=== PATIENT | male | born 1980 | race Caucasian/White ===

== ENCOUNTER 2019-08-04 08:28 | Emergency (ER) | payer BC, OTHER ==
[~2019-08-04] VITALS: Ht 182.9 cm; Wt 90.0 kg
[2019-08-04 08:32] VITALS: BP 126/83
[2019-08-04] MEDS ORDERED: METH-360 PO (09:29)
[2019-08-04] MEDS ORDERED: NAPR-56 PO (09:29)
[2019-08-04] MEDS ORDERED: ketorolac tromethamine 15mg/ml inj. IM ONE (09:30)
== END 2019-08-04 09:53 | disposition home or self-care (01) ==
LOC: ER 08:28
DX: M54.5 Low back pain (principal); M54.6 Pain in thoracic spine; Z79.899 Other long term (current) drug therapy
CPT/HCPCS: 96372; 99283; J1885

== ENCOUNTER 2020-06-09 11:55 | Emergency (ER) | payer MEDICAID, OTHER ==
[~2020-06-09] VITALS: Ht 180.3 cm; Wt 90.9 kg
[~2020-06-09 11:55] MED LIST: METH-360 PO
[2020-06-09 12:01] VITALS: BP 132/93
[2020-06-09] MEDS ORDERED: AMOX-422 PO (12:36)
== END 2020-06-09 12:52 | disposition home or self-care (01) ==
LOC: ER 11:56
DX: H66.91 Otitis media, unspecified, right ear (principal); M54.2 Cervicalgia; Z79.2 Long term (current) use of antibiotics; Z79.899 Other long term (current) drug therapy
CPT/HCPCS: 99283

== ENCOUNTER 2020-11-13 06:29 | Emergency (ER) | payer MEDICAID, OTHER ==
[~2020-11-13] VITALS: Ht 180.3 cm; Wt 86.4 kg
[2020-11-13 06:33] VITALS: BP 125/87
== END 2020-11-13 07:40 | disposition home or self-care (01) ==
LOC: ER 06:29
DX: S93.402A Sprain of unspecified ligament of left ankle, initial encounter (principal); F17.210 Nicotine dependence, cigarettes, uncomplicated; Z79.899 Other long term (current) drug therapy; Y30.XXXA Falling, jumping or pushed from a high place, undetermined intent, initial encounter; Y93.89 Activity, other specified; Y92.89 Other specified places as the place of occurrence of the external cause; Y99.8 Other external cause status
CPT/HCPCS: 73610; 99283

== ENCOUNTER 2024-07-20 12:35 | Emergency (ER) | payer MEDICAID, OTHER ==
[~2024-07-20] VITALS: Ht 180.3 cm; Wt 88.9 kg
--- NOTE | 2024-07-20 13:18 | Physician Documentation ---
History of Present Illness ~ General Chief Complaint: Multiple Medical Complaints Stated Complaint: MULTIPLE MED COMPLAINTS Time Seen by MD: 12:42 Primary Medical Doctor: none History of Present Illness Initial Comments This is a 43-year-old male who presents with neck and upper back pain following a fall from a tree three days prior, patient reports he fell approximately 6-10 feet striking his head though reports no blood thinners and no loss of consciousness. Patient reports pain is worse when moving his head and neck. Reports no new numbness or weakness in extremities. Patient additionally reports concern for a painful area of swelling that has been present for the past month to his right face just superior to his right ear. Patient reports no nausea or vomiting and no vision changes. Patient reports no other acute symptoms or concerns. Medication Reconciliation Allergies: Coded Allergies: No Known Allergies (Unverified , 10/02/10) Scheduled Methocarbamol (Robaxin-750), 1 TAB PO Q12H Sulfamethoxazole/Trimethoprim (Bactrim Ds Tablet), 1 TAB PO Q12H Past Medical History Past Medical History: No Pertinent History Past Surgical History: no surgical history Alcohol Use: None Drug Use: none Review of Systems ROS Neck and back pain Physical Exam Physical Exam Vital Signs: Temperature: 98.5, Source: Oral, Heart Rate: 101, Respiratory Rate: 16, BP: 154/90, Pulse Oximetry: 98, Weight: 88.900 Oxygen Flow Rate: 0 Physical Exam VITALS: Reviewed and as above. GENERAL: Alert, nontoxic appearing, no apparent distress. HEENT: Approximately 1.5 cm x 1.5 cm raised area of fluctuance tender to palpation to lateral aspect of scalp just superior to right ear, mildly erythematous. Otherwise atraumatic, normocephalic, PERRLA, EOMI, no bates sign, no raccoon eye. C-spine and neck nontender to palpation, patient reports pain when turning neck 45 in each direction RESPIRATORY: No increased work of breathing, no respiratory distress, speaking in full clear sentences CHEST: Nontender to palpation, no deformity, no flail chest, no crepitus CV: Regular rate and rhythm no murmur BACK: Nontender to palpation no deformity, no crepitus GI: Nondistended MUSCULOSKELETAL: Nontender to palpation, no deformity, no crepitus SKIN: NEURO: PSYCH: Procedures I & D Procedure : Site: Right anterior inferolateral scalp Anesthesia: Lidocaine w/ Epi Volume Anesthetic (mls): 2 Blade Size: 11 Incision: mass incised, pus drained Tolerated Procedure Well?: yes, no complications Progress Results/Orders Results/Orders Orders - FORTUNATO ARGUELLES REPLENISHER Ct Head (07/20/24 13:08) Ct Cervical Spine (07/20/24 13:08) Laceration/I&D Tray Set Up (07/20/24 13:18) Consent For Procedure (07/20/24 ) Completed Orders - FORTUNATO ARGUELLES REPLENISHER Ct Head (07/20/24 13:08) Ct Cervical Spine (07/20/24 13:08) Tetanus/Pertuss/Diph Acell/Pf (Boostrix (07/20/24 13:20) Lidocaine 1% W/Epi 1:100,000 (Xylocaine (07/20/24 13:20) Ketorolac Trometh 15mg/Ml Vial (Toradol (07/20/24 13:50) Vital Signs 07/20/24 07/20/24 07/20/24 12:37 13:21 15:12 Temp 98.5 98.5 Pulse 101 78 Resp 16 12 14 B/P (MAP) 154/90 128/69 Pulse Ox 98 99 O2 Flow Rate 0 EKG/XRAY/CT/US/VASC/MRI CT #1: Impression EXAM: CT CT CERVICAL SPINE HISTORY: headstrike no loc COMPARISON: None CTDIvol 20.7 mGy, DLP 556.3 mGy*cm. TECHNIQUE: Multiple axial CT images of the spine were obtained using bone algorithm. Axial and coronal reformatting was done. Bone and soft tissue windows were reviewed. FINDINGS: No evidence of definite acute fracture, spinal dislocation, or significant appearing acute subluxation is seen. Degenerative changes of the spine. IMPRESSION: No definite CT evidence of acute fracture or dislocation of the bony cervical spine. Electronically Signed by:DAVIAN WINSTON MD Date & Time: 07/20/24 132 Dictated by: DAVIAN WINSTON MD Dictation date and time: 07/20/24 1322 I have reviewed and agree with the radiology report. I have reviewed and interpreted the imaging as: No fracture or acute misalignment CT #2: Impression EXAM: CT CT HEAD HISTORY: headstrike no loc COMPARISON: None TECHNIQUE: Axial images of the head were obtained and reformatted in coronal and sagittal planes. All CT scans at this medical facility are performed using dose modulation techniques as appropriate to a performed exam including the following: Automated exposure control was utilized; adjustment of the MA and/or KV according to patient size; and use of iterative reconstruction technique. CT Dose: CTDI volume is 65 mGy. Dose-length product is 1227 mGy*cm FINDINGS: There is a small area of encephalomalacia in the inferomedial right cerebellum probably related to chronic infarct. There is no evidence of acute intracranial hemorrhage, mass, mass effect midline shift. There is no hydrocephalus or extra- axial fluid collection. Bustillos-white matter differentiation is maintained. The visualized paranasal sinuses and mastoid air cells are clear. The calvarium is intact. IMPRESSION: 1. No acute intracranial process. 2. Small area of encephalomalacia in the inferomedial right cerebellum probably related chronic infarct. HS:Y Electronically Signed by:DEONDRE CALDERON MD Date & Time: 07/20/24 1326 Dictated by: DEONDRE CALDERON MD Dictation date and time: 07/20/24 1308 I have reviewed and agree with the radiology report. I have reviewed and interpreted the imaging as: No intracranial hemorrhage Medical Decision Making Findings This 43-year-old male presented with neck and upper back pain following a fall from a tree where he struck his head three days prior, reassuring the patient did not have loss of consciousness, is not as blood thinners, and reported no new weakness or numbness in limbs. CTs of head and C-spine were obtained, head CT did not demonstrate evidence of intracranial hemorrhage or acute skull fracture, and CT of C-spine did not demonstrate evidence of fracture or traumatic misalignment. Remainder of physical exam was benign with no other injuries found on exam and patient reported no other injuries. Patient had additional concern for a area of pain and swelling to his right scalp just superior to his right ear present for approximately one month and increasing in size which on exam was found to be tender and fluctuant consistent with an abscess or infected cystic mass therefore a incision drainage was indicated. Mass was incised with semi loculated purulent material expressed, patient tolerated procedure well with no complications. Patient is appropriate for outpatient follow up and given careful return to care precautions and instructed to follow up in 2-3 days for wound recheck with primary care provider or return to the emergency department. Patient provided home care instructions and return to care precautions which he verbalized understanding of. Differential Diagnosis Cellulitis, intracranial hemorrhage, neurovascular injury, spinal cord injury, spinal fracture, fractures, chest wall injury, concussion, abrasions Departure Time of Disposition: 15:01 Disposition: 01 HOME / SELF CARE / HOMELESS Impression: Primary Impression: Cutaneous abscess of face Additional Impressions: Neck pain Upper back pain Condition: Improved Discharge Instructions: Abscess, Care After, Incision and Drainage, Care After Additional Instructions: Your neck and back pain from your follow up appears to be soft tissue injuries it is reassuring that you do not have any numbness or weakness in your arms or legs. Please keep the drained abscess area clean and dry, use warm compresses on it 20 minutes at time at least twice a day to help the area drain. Take the antibiotics as prescribed. Please follow up with your primary care provider in the next few days. Please return to the emergency department for any new or worsening concerning symptoms including but not limited to new weakness or numbness, confusion, persistent vomiting, worsening pain and swelling to the area or if you develop a fever. Referrals: NO PRIMARY CARE PROVIDER (PCP) Prescriptions Sulfamethoxazole/Trimethoprim (Bactrim Ds Tablet) 800 Mg-160 Mg Tablet 1 TAB PO Q12H for 7 Days, #14 TAB Prov: FORTUNATO ARGUELLES 07/20/24 Education Educated: Patient Educated regarding: diagnosis, treatment, prognosis, need for follow up Signature Scribe Signature: No scribe Attestation: The note accurately reflects work and decisions made by me.SARAH Kendrick 07/20/24 22:18 FORTUNATO ARGUELLES July 20, 2024 13:18
[2024-07-20] MEDS: LIDOcaine 1% W/epiNEPHrine 1:100,000 20ml vial IJ ONE (13:20)
--- NOTE | 2024-07-20 13:24 | RADIOLOGY REPORT ---
EXAM: CT CT CERVICAL SPINE HISTORY: headstrike no loc COMPARISON: None CTDIvol 20.7 mGy, DLP 556.3 mGy*cm. TECHNIQUE: Multiple axial CT images of the spine were obtained using bone algorithm. Axial and michel l reformatting was done. Bone and soft tissue windows were reviewed. FINDINGS: No evidence of definite acute fracture, spinal dislocation, or significant appearing acute subluxatio n is seen. Degenerative changes of the spine. IMPRESSION: No definite CT evidence of acute fracture or dislocation of the bony cervical spine.
--- NOTE | 2024-07-20 13:29 | RADIOLOGY REPORT ---
EXAM: CT CT HEAD HISTORY: headstrike no loc COMPARISON: None TECHNIQUE: Axial images of the head were obtained and reformatted in coronal and sagittal planes. All CT scans at this medical facility are performed using dose modulation techniques as appropriate t o a performed exam including the following: Automated exposure control was utilized; adjustment of th e MA and/or KV according to patient size; and use of iterative reconstruction technique. CT Dose: CTDI volume is 65 mGy. Dose-length product is 1227 mGy*cm FINDINGS: There is a small area of encephalomalacia in the inferomedial right cerebellum probably related to ch ronic infarct. There is no evidence of acute intracranial hemorrhage, mass, mass effect midline shift . There is no hydrocephalus or extra-axial fluid collection. Bustillos-white matter differentiation is ma intained. The visualized paranasal sinuses and mastoid air cells are clear. The calvarium is intact. IMPRESSION: 1. No acute intracranial process. 2. Small area of encephalomalacia in the inferomedial right cerebellum probably related chronic infar ct. HS:Y
[2024-07-20] MEDS ORDERED: SULF1TAB49 PO (15:01)
[2024-07-20] MEDS: ketorolac trometh 15mg/ml vial 15 MG/ML ML IM ONE (15:01)
[2024-07-20] MEDS: TETanus/Pertussis (Acell)/Diphther VAC/PF (Tdap-Adult) 0.5ml syringe IMVAC ONE (15:03)
[2024-07-20 15:12] VITALS: BP 128/69; PULSE 78; RESP 14; TEMP 98.5; O2SAT 99
== END 2024-07-20 15:14 | disposition home or self-care (01) ==
LOC: ER 12:35
DX: L02.01 Cutaneous abscess of face (principal); M54.2 Cervicalgia; M54.9 Dorsalgia, unspecified; Z79.899 Other long term (current) drug therapy
CPT/HCPCS: 10060; 70450; 72125; 90471; 90715; 96372; 99285; J1885; J3490; A6449